=== PATIENT | female | born 1980 | race Caucasian/White ===

== ENCOUNTER 2022-04-13 23:08 | Emergency (ER) | payer BC, MEDICAID ==
[~2022-04-13] VITALS: Ht 167.6 cm; Wt 89.0 kg
[~2022-04-13 23:08] MED LIST: ACET-3161 PO; FERR325C PO; MULT-1116 PO
[2022-04-14] MEDS ORDERED: IBUPROFEN 600MG TABLET PO ONE (01:45)
[2022-04-14 04:18] VITALS: BP 140/79
== END 2022-04-14 04:20 | disposition home or self-care (01) ==
LOC: ER 23:30
DX: T14.8XXA Other injury of unspecified body region, initial encounter (principal); S61.301A Unspecified open wound of left index finger with damage to nail, initial encounter; Z98.84 Bariatric surgery status; Z90.710 Acquired absence of both cervix and uterus; Y08.89XA Assault by other specified means, initial encounter; Y07.03 Male partner, perpetrator of maltreatment and neglect; Y93.89 Activity, other specified; Y92.018 Other place in single-family (private) house as the place of occurrence of the external cause
CPT/HCPCS: 71045; 72070; 72100; 73130; 81025; 99284

== ENCOUNTER 2025-05-29 18:06 | Emergency (ER) | payer BC ==
[~2025-05-29] VITALS: Ht 175.3 cm; Wt 85.0 kg
[2025-05-29 18:10] VITALS: BP 126/70; TEMP 37.1; O2SAT 100
[2025-05-29 18:14] VITALS: PULSE 98; RESP 18; O2SAT 99
[2025-05-29] MEDS ORDERED: ACETAMINOPHEN 500MG TABLET PO ONE (18:45)
[2025-05-29] MEDS ORDERED: BACITRACIN ZINC OINT UDPKT TOP ONE (18:45)
[2025-05-29] MEDS ORDERED: TETANUS, DIPHTHERIA, PERTUSSIS VAC/PF 0.5ML (>10YR OLD) IM ONE (18:45)
== END 2025-05-29 21:00 | disposition left against medical advice (07) ==
LOC: ER 18:06
DX: T14.8XXA Other injury of unspecified body region, initial encounter (principal); Z53.21 Procedure and treatment not carried out due to patient leaving prior to being seen by health care provider; X58.XXXA Exposure to other specified factors, initial encounter; Y93.89 Activity, other specified; Y92.89 Other specified places as the place of occurrence of the external cause; Y99.8 Other external cause status